=== PATIENT | male | born 1975 | race Caucasian/White ===

== ENCOUNTER 2024-02-02 18:56 | Emergency (ER) | payer OTHER ==
[~2024-02-02] VITALS: Ht 180.3 cm; Wt 90.7 kg
[~2024-02-02 18:56] MED LIST: ALBU90OI INH; CRUTCH3 USE; DOXY100 PO; HYDACE10B PO; HYDACE5; HYDACE5 PO; IBUP600 PO; NAPR550 PO; OXYACE5T PO; OXYACE7.5T PO; PROCODE120 PO; PROM25 PO; RXOXYACE PO; TRAM50 PO
[2024-02-02 19:09] VITALS: BP 178/99
[2024-02-02] MEDS ORDERED: Cephalexin Monohydrate 500 MG Cap PO ONE (20:40)
[2024-02-02] MEDS ORDERED: Trimethoprim/Sulfamethoxazole DS Tab PO ONE (20:40)
[2024-02-02] MEDS ORDERED: CEPH500 PO (20:41)
[2024-02-02] MEDS ORDERED: BACTRIM DS TAB1 EAC1 PO (20:41)
== END 2024-02-02 20:50 | disposition home or self-care (01) ==
LOC: ER 18:56
DX: L02.01 Cutaneous abscess of face (principal)
CPT/HCPCS: 10060; 99283-25; A9270

== ENCOUNTER 2024-04-17 01:42 | Emergency (ER) | payer OTHER ==
[~2024-04-17] VITALS: Ht 180.3 cm; Wt 93.0 kg
[~2024-04-17 01:42] MED LIST changes: +BACTRIM DS TAB1 EAC1 PO; +CEPH500 PO
[2024-04-17 04:20] VITALS: BP 180/106
[2024-04-17] MEDS ORDERED: OXYCODONE-ACET1 EAC3 PO (04:23)
[2024-04-17] MEDS ORDERED: EUTHYROX100 MC1 PO (04:24)
[2024-04-17] MEDS ORDERED: Diphth,Pertuss(Acell),Tet Vac 0.5 ML VIAL IM ONE (04:50)
[2024-04-17] MEDS ORDERED: Trimethoprim/Sulfamethoxazole DS Tab PO ONE (04:50)
[2024-04-17] MEDS ORDERED: Cephalexin Monohydrate 500 MG Cap PO ONE (04:50)
[2024-04-17] MEDS ORDERED: SULTRIDS PO (04:51)
[2024-04-17] MEDS ORDERED: CEPH500 PO (04:51)
== END 2024-04-17 05:00 | disposition home or self-care (01) ==
LOC: ER 01:42
DX: L02.01 Cutaneous abscess of face (principal); Z23 Encounter for immunization
CPT/HCPCS: 10060; 87070; 87077; 87186; 87205; 99283-25

== ENCOUNTER 2024-05-08 19:16 | Emergency (ER) | payer OTHER ==
[~2024-05-08] VITALS: Ht 180.3 cm; Wt 109.3 kg
[~2024-05-08 19:16] MED LIST changes: +EUTHYROX100 MC1 PO; +OXYCODONE-ACET1 EAC3 PO; +SULTRIDS PO
[2024-05-08 19:48] VITALS: BP 140/79
[2024-05-08] MEDS ORDERED: LORazepam 1 MG Tab PO ONE (21:25)
[2024-05-08] MEDS ORDERED: SYNTHROID100 M14 PO (21:52)
== END 2024-05-08 21:53 | disposition home or self-care (01) ==
LOC: ER 19:16
DX: F11.93 Opioid use, unspecified with withdrawal (principal); E03.9 Hypothyroidism, unspecified; Z79.899 Other long term (current) drug therapy
CPT/HCPCS: 99283; A9270

== ENCOUNTER → 2024-05-09 | Outpatient (CLI) | payer OTHER ==
[~2024-05-09] MED LIST changes: +SYNTHROID100 M14 PO
[2024-05-14 23:21] LABS: 6-ACETYLMORPHINE, URN, QUANT <10 ng/mL; CODEINE, URN, QUANT 803 ng/mL; HYDROCODONE, URN, QUANT <20 ng/mL; HYDROMORPHONE, URN, QUANT <20 ng/mL; MORPHINE, URN, QUANT 38 ng/mL; NORHYDROCODONE, URN, QUANT <20 ng/mL; NOROXYCODONE, URN, QUANT <20 ng/mL; NOROXYMORPHONE, URN, QUANT <20 ng/mL; OXYCODONE, URN, QUANT <20 ng/mL; OXYMORPHONE, URN, QUANT <20 ng/mL
[2024-05-15 10:02] LABS: 7-AMINOCLONAZEPAM, URN, QUANT <5 ng/mL; A-HYDROXYALPRAZOLAM, URN, QNT 64 ng/mL; A-HYDROXYMIDAZOLAM, URN, QNT <20 ng/mL; ALPRAZOLAM, URN, QUANT 46 ng/mL; CHLORDIAZEPOXIDE, URN, QUANT <20 ng/mL; CLONAZEPAM, URN, QUANT <5 ng/mL; DIAZEPAM, URN, QUANT <20 ng/mL; LORAZEPAM, URN, QUANT 1190 ng/mL; MIDAZOLAM, URN, QUANT <20 ng/mL; NORDIAZEPAM, URN, QUANT <20 ng/mL; OXAZEPAM, URN, QUANT <20 ng/mL; TEMAZEPAM, URN, QUANT <20 ng/mL
== END ==
LOC: LAB SHORT 17:05 → LAB 17:05
PROVIDERS: Family Medicine
DX: F11.23 Opioid dependence with withdrawal (principal)
CPT/HCPCS: G0480; G0481

== ENCOUNTER 2024-06-06 05:32 | Emergency (ER) | payer OTHER ==
[~2024-06-06] VITALS: Ht 180.3 cm; Wt 93.0 kg
[2024-06-06] MEDS ORDERED: OxyCODONE HCL 5 MG TAB PO ONE (07:30)
[2024-06-06 08:34] LABS: BASOPHILS ABSOLUTE AUTO 0.04 K/mm3 (0.00-0.23); BASOPHILS PERCENT AUTO 1 % (0-2); EOSINOPHILS ABSOLUTE AUTO 0.45 K/mm3 (0.00-0.68); EOSINOPHILS PERCENT AUTO 11 % (0-6); Hematocrit 37.8 % (37.0-53.0); Hemoglobin 12.6 g/dL (13.5-17.5); IMMATURE GRAN ABSOLUTE AUTO 0.01 K/mm3 (0.00-0.10); IMMATURE GRAN PERCENT AUTO 0 % (0-1); LYMPHOCYTES ABSOLUTE AUTO 1.36 K/mm3 (0.84-5.20); LYMPHOCYTES PERCENT AUTO 33 % (21-46); MONOCYTES ABSOLUTE AUTO 0.56 K/mm3 (0.16-1.47); MONOCYTES PERCENT AUTO 14 % (4-13); Mean Corpuscular HGB 29.8 pg (26.0-34.0); Mean Corpuscular HGB Conc 33.3 g/dL (31.5-36.5); Mean Corpuscular Volume 89 fL (80-100); Mean Platelet Volume 9.1 fL (9.1-12.4); NEUTROPHILS PERCENT AUTO 41 % (41-73); Platelet Count 314 K/mm3 (150-400); RDW Coefficient Variation 12.3 % (11.7-14.2); RDW Standard Deviation 40.2 fL (35.1-46.3); Red Blood Cell Count 4.23 M/mm3 (4.30-5.90); White Blood Cell Count 4.12 K/mm3 (4.00-11.30)
[2024-06-06 08:57] LABS: Albumin, Blood 3.4 g/dL (3.4-5.0); Albumin/Globulin Ratio 1.2 (0.8-1.8); Bilirubin, Total 0.3 mg/dL (0.1-1.0); Calcium, Blood 10.3 mg/dL (8.5-10.1); Globulin, Blood 2.8 g/dL (2.2-4.0); Potassium, Blood 4.3 mmol/L (3.5-5.5); Total Protein, Blood 6.2 g/dL (6.4-8.2)
[2024-06-06] MEDS ORDERED: FentaNYL Citrate 50 MCG/ML 2 ML Injection IV ONE (10:15)
[2024-06-06] MEDS ORDERED: SULTRIDS PO (10:53)
[2024-06-06] MEDS ORDERED: CEPH500 PO (10:54)
[2024-06-06 11:15] VITALS: BP 126/86
== END 2024-06-06 11:28 | disposition home or self-care (01) ==
LOC: ER 05:32
PROVIDERS: Student in an Organized Health Care Education/Training Program
DX: L02.01 Cutaneous abscess of face (principal); Z86.14 Personal history of Methicillin resistant Staphylococcus aureus infection
CPT/HCPCS: 10060; 70487; 80053; 85025; 96374-59; 99284-25; A9270; J3010; Q9967

== ENCOUNTER 2024-06-21 03:45 | Emergency (ER) | payer OTHER ==
[~2024-06-21] VITALS: Ht 180.3 cm; Wt 93.0 kg
[2024-06-21 04:06] VITALS: BP 140/77
== END 2024-06-21 04:45 | disposition home or self-care (01) ==
LOC: ER 03:45
DX: Z00.8 Encounter for other general examination (principal); E03.9 Hypothyroidism, unspecified; Z79.890 Hormone replacement therapy
CPT/HCPCS: 99282

== ENCOUNTER 2024-06-29 03:09 | Observation (INO) | payer OTHER ==
[~2024-06-29] VITALS: Ht 180.3 cm; Wt 88.5 kg
[~2024-06-29 03:09] MED LIST changes: +Bactrim Ds Tab1 EACH PO
[2024-06-29 03:45] VITALS: BP 149/91
[2024-06-29 03:45] LABS: BASOPHILS ABSOLUTE AUTO 0.03 K/mm3 (0.00-0.23); BASOPHILS PERCENT AUTO 0 % (0-2); EOSINOPHILS ABSOLUTE AUTO 0.26 K/mm3 (0.00-0.68); EOSINOPHILS PERCENT AUTO 3 % (0-6); Hematocrit 36.6 % (37.0-53.0); Hemoglobin 12.1 g/dL (13.5-17.5); IMMATURE GRAN ABSOLUTE AUTO 0.08 K/mm3 (0.00-0.10); IMMATURE GRAN PERCENT AUTO 1 % (0-1); LYMPHOCYTES ABSOLUTE AUTO 1.08 K/mm3 (0.84-5.20); LYMPHOCYTES PERCENT AUTO 12 % (21-46); MONOCYTES ABSOLUTE AUTO 0.97 K/mm3 (0.16-1.47); MONOCYTES PERCENT AUTO 10 % (4-13); Mean Corpuscular HGB 29.2 pg (26.0-34.0); Mean Corpuscular HGB Conc 33.1 g/dL (31.5-36.5); Mean Corpuscular Volume 88 fL (80-100); Mean Platelet Volume 8.5 fL (9.1-12.4); NEUTROPHILS ABSOLUTE AUTO 7.01 K/mm3 (1.96-9.15); NEUTROPHILS PERCENT AUTO 74 % (41-73); Platelet Count 418 K/mm3 (150-400); RDW Coefficient Variation 12.7 % (11.7-14.2); RDW Standard Deviation 40.9 fL (35.1-46.3); Red Blood Cell Count 4.15 M/mm3 (4.30-5.90); White Blood Cell Count 9.43 K/mm3 (4.00-11.30)
[2024-06-29 04:06] LABS: Ethanol (Alcohol), Blood, Med <3 mg/dL; Salicylate <1.7 mg/dL (2.8-20.0)
[2024-06-29 04:19] LABS: Acetaminophen, Random <2.0 ug/mL (10.0-30.0); Alanine Aminotransfer (ALT/SGP 33 U/L (12-78); Albumin, Blood 3.2 g/dL (3.4-5.0); Albumin/Globulin Ratio 0.8 (0.8-1.8); Alk Phos 74 U/L (50-136); Anion Gap 9 mmol/L (3-11); Aspartate Aminotrans (AST/SGOT 30 U/L (12-37); Bilirubin, Total 0.3 mg/dL (0.1-1.0); Blood Urea Nitrogen 12 mg/dL (8-24); Bun/Creatinine Ratio 13.5 (12.0-20.0); CO2, Blood 30 mmol/L (21-32); Calcium, Blood 9.5 mg/dL (8.5-10.1); Chloride, Blood 104 mmol/L (98-108); Creatinine, Blood 0.89 mg/dL (0.60-1.20); Globulin, Blood 3.8 g/dL (2.2-4.0); Glomerular Filtration Rate 106 (60-); Glucose, Blood 95 mg/dL (70-99); Potassium, Blood 4.1 mmol/L (3.5-5.5); Sodium, Blood 139 mmol/L (136-145)
[2024-06-29] MEDS ORDERED: Ziprasidone Mesylate 20 MG / Vial IM ONE (05:45)
[2024-06-29 08:35] LABS: U Amphetamine Screen Not Detected; U Barbituate Screen Not Detected; U Benzodiazapine Screen Not Detected; U Buprenorphine Screen Not Detected; U Cannabinoids Screen Not Detected; U Cocaine Screen Not Detected; U Methadone Screen Not Detected; U Methamphetamine Screen Not Detected; U Opiates Screen Not Detected; U Oxycodone Screen Not Detected; U Phencyclidine Screen Not Detected
== END 2024-06-29 13:19 | disposition home or self-care (01) ==
LOC: ER 03:09 → EOR 03:10
PROVIDERS: ADMIT Emergency Medicine
DX: F11.13 Opioid abuse with withdrawal (principal); R45.850 Homicidal ideations; R45.851 Suicidal ideations; F31.9 Bipolar disorder, unspecified; E03.9 Hypothyroidism, unspecified; L73.9 Follicular disorder, unspecified; Z79.890 Hormone replacement therapy; Z79.899 Other long term (current) drug therapy; Z86.14 Personal history of Methicillin resistant Staphylococcus aureus infection
CPT/HCPCS: 71045; 80053; 80320; 85025; 93005; 93010; 96372; 99283-25; 99285-25; A9270; G0378; G0480; J3486